=== PATIENT | male | born 1975 | race Caucasian/White ===

== ENCOUNTER 2016-10-30 17:54 | Emergency (ER) | payer OTHER | END 2016-10-30 19:45 | disposition home or self-care (01) | LOC: ER1 17:54 | DX: S60.221A Contusion of right hand, initial encounter (principal); I10 Essential (primary) hypertension; W23.0XXA Caught, crushed, jammed, or pinched between moving objects, initial encounter; Y92.009 Unspecified place in unspecified non-institutional (private) residence as the place of occurrence of the external cause; Z79.899 Other long term (current) drug therapy | CPT/HCPCS: 73110; 73130; 99283 ==